=== PATIENT | female | born 2000 | race Caucasian/White ===

== ENCOUNTER 2021-09-11 18:24 | Emergency (ER) | payer SELFPAY ==
[~2021-09-11] VITALS: Ht 154.9 cm; Wt 55.0 kg
[2021-09-11] MEDS ORDERED: ACETAMINOPHEN 325MG TABLET PO STA (18:39)
[2021-09-11 19:06] LABS: CLARITY URINE CLOUDY (CLEAR); COLOR URINE YELLOW (YELLOW); KETONES URINE NEGATIVE (NEGATIVE); LEUKOCYTE ESTERASE URINE TRACE (NEGATIVE); NITRITE URINE NEGATIVE (NEGATIVE); OCCULT BLOOD URINE NEGATIVE (NEGATIVE); PH URINE 6.5 (4.5-8.0); PROTEIN URINE NEGATIVE (NEGATIVE)
[2021-09-11 19:06] LABS: BASOPHILS % 0.3 % (0.0-2.0); EOSINOPHILS % 0.7 % (0.0-5.0); HEMATOCRIT. 33.9 % (36.0-48.0); HEMOGLOBIN. 11.9 g/dL (12.0-16.0); LYMPHOCYTES % 19.8 % (20.0-50.0); MEAN CORPUSCULAR HEMOGLOBIN 30.7 pg (28.0-32.0); MEAN CORPUSCULAR VOLUME 87.2 fL (81.0-99.0); MEAN PLATELET VOLUME 8.2 fl (7.4-10.4); MONOCYTES % 7.5 % (2.0-8.0); NEUTROPHILS % 71.7 % (40.0-76.0); PLATELET 290 x1000/uL (130-400); RED BLOOD CELL COUNT 3.89 mill/uL (4.2-5.4)
[2021-09-11 19:22] LABS: CHLORIDE 106 mEq/L (98-107)
[2021-09-11 19:45] LABS: B-HCG QUANTITATIVE 131301 mIU/mL (<3)
[2021-09-11] MEDS ORDERED: CEPH500C2 MT (21:21)
[2021-09-11 21:28] VITALS: BP 121/74
== END 2021-09-11 21:29 | disposition home or self-care (01) ==
LOC: ER 18:24
DX: O20.0 Threatened abortion (principal); O26.891 Other specified pregnancy related conditions, first trimester; R82.71 Bacteriuria; Z3A.12 12 weeks gestation of pregnancy
CPT/HCPCS: 36415; 76801; 80053; 81003; 81025; 84702; 85025; 86850; 86900; 99284

== ENCOUNTER 2022-03-14 00:30 | Observation (INO) | payer MEDICAID ==
[~2022-03-14] VITALS: Ht 170 cm; Wt 67.6 kg
[~2022-03-14 00:30] MED LIST: CEPH500C2 MT
[2022-03-14] MEDS ORDERED: MULT-1146 MT (01:17)
[2022-03-14] MEDS ORDERED: DIPHENHYDRAMINE 50MG/ML VIAL IV NR (02:00)
== END 2022-03-14 05:05 | disposition home or self-care (01) ==
LOC: 8 EST LDRP 00:30
PROVIDERS: ADMIT Obstetrics & Gynecology; ATTEND Obstetrics & Gynecology
DX: O26.893 Other specified pregnancy related conditions, third trimester (principal); L29.9 Pruritus, unspecified; N89.8 Other specified noninflammatory disorders of vagina; Z3A.39 39 weeks gestation of pregnancy
CPT/HCPCS: 59025; 96374; G0378; J1200; 96372; 99281